=== PATIENT | female | born 2000 | race Caucasian/White ===

== ENCOUNTER 2022-11-09 18:16 | Emergency (ER) | payer SELFPAY ==
[2022-11-09 18:52] LABS: Bacteria/HPF None Seen HPF (None Seen); Bilirubin Negative (Negative); Blood, Urine 3+ (Negative); Clarity Extra Turbid (Clear); Glucose, Urine (Dipstick) Normal (Negative); Ketone, Urine Negative (Negative); Leukocyte 500 Leu/uL (Negative); Nitrite Negative (Negative); Protein, Urine (Dipstick) 200 mg/dL (Neg-Trace); RBC/HPF Greater than 50 HPF (0-3); Specific Gravity, Urine 1.019 (1.002-1.036); Urobilinogen Normal mg/dL (Less than 2); WBC/HPF Greater than 50 HPF (0-3)
[2022-11-09 18:55] LABS: Pregnancy Test - Urine (BHCG) Negative (Negative)
[2022-11-09 18:56] LABS: Pregu Control Background? CLEAR/WHITE (CLR/WHITE); Pregu Control Bar Appear? YES (CONTROL BAR); Specific Gravity 1.019 (1.002-1.036)
[2022-11-09] MEDS ORDERED: Acetaminophen 500 MG TAB ONE (20:26)
[2022-11-09] MEDS ORDERED: Ibuprofen 200 MG TAB ONE (21:11)
[2022-11-09] MEDS ORDERED: cefTRIAXone\\ROCEPHIN 1 GM VIAL ONE (21:33)
[2022-11-09] MEDS ORDERED: Lidocaine 1% PF 5 ML VIAL ONE (21:39)
[2022-11-09] MEDS ORDERED: Phenazopyridine HCl 95 MG TAB PO SCH (22:00)
[2022-11-09] MEDS ORDERED: Phenazopyridine HCl 100 MG TAB PO SCH (22:00)
== END 2022-11-09 22:08 | disposition home or self-care (01) ==
LOC: ERS 18:16
DX: B34.9 Viral infection, unspecified (principal); N39.0 Urinary tract infection, site not specified; F17.290 Nicotine dependence, other tobacco product, uncomplicated
CPT/HCPCS: 81003; 81015; 81025; 87086; 87804; 96372; 99283; J0696; U0003; U0005